=== PATIENT | female | born 2000 | race Caucasian/White ===

== ENCOUNTER 2018-03-17 01:46 | Emergency (ER) | payer SELFPAY ==
--- NOTE | 2018-03-17 02:22 | EDPHY ---
H & P Stated Complaint: ETOH. Picked up at [facility]. Time Seen by Provider: 03/17/18 02:12 HPI/ROS: Chief Complaint: Alcohol intoxication, vomiting HPI: 17-year-old female [facility]. Patient passed out after vomiting. Is unable to ambulate on their own. Patient brought in by EMS for further evaluation. No obvious signs of trauma per EMS. Remainder of history is unobtainable secondary to the patient's intoxication. ROS: Unobtainable secondary to the patient's intoxication PMH: Unknown Medications: Unknown Allergies: Unknown Social History: Positive for alcohol Family History: non-contributory Physical Exam: Gen: Somnolent, responds to painful stimuli, maintaining airway, smells of alcohol and emesis HEENT: Atraumatic Nose: no epistaxis or deformity Eyes: PERRLA, EOMI Mouth: Moist mucosa Neck: Supple, no step-offs or deformity Chest: Atraumatic, lungs clear to auscultation Heart: S1, S2 normal, no murmur Abd: Soft, non-tender, no guarding Back: Atraumatic Ext: no edema, atraumatic Skin: no rash Neuro: Sensation grossly intact, Strength 5/5 in bilateral upper and lower extremities - Personal History LMP (Females 10-55): Unknown Current Tetanus Diphtheria and Acellular Pertussis (TDAP): Unsure - Social History Smoking Status: Unknown if ever smoked Constitutional: Initial Vital Signs Temperature (C) 36.4 C 03/17/18 01:50 Heart Rate 75 03/17/18 01:50 Respiratory Rate 16 03/17/18 01:50 Blood Pressure 134/82 H 03/17/18 01:50 O2 Sat (%) 95 03/17/18 01:50 O2 Delivery Mode Room Air Allergies/Adverse Reactions: Unable to Assess Allergy (Unverified 03/17/18 01:53) Home Medications: Medication Instructions Recorded Unobtainable 03/17/18 Medical Decision Making ED Course/Re-evaluation: Patient is now awake and appropriate. Ambulating unassisted to the bathroom. No current complaints. Patient is tolerating oral fluids. Patient is ready for discharge with sober ride. Departure - Departure Disposition: Home, Routine, Self-Care Clinical Impression: Alcoholic intoxication Condition: Good Instructions: Alcohol Intoxication (ED) Referrals: Patient,NotPresent [Unknown] - As per Instructions
[2018-03-17 06:54] VITALS: BP 127/89
== END 2018-03-17 06:56 | disposition home or self-care (01) ==
DX: F10.920 Alcohol use, unspecified with intoxication, uncomplicated (principal); R11.10 Vomiting, unspecified